=== PATIENT | male | born 1975 ===

== ENCOUNTER 2018-02-12 16:40 | Outpatient (REF) | payer BC, SELFPAY ==
[2018-02-12 22:59] LABS: ALT 45 U/L (12-78); AST 20 U/L (15-37); Albumin 4.2 g/dL (3.4-5.0); Alkaline Phosphatase 76 U/L (46-116); Anion Gap 7.4 mmol/L (3-11); BUN 17 mg/dL (7-18); Bilirubin, Total 0.7 mg/dL (0.2-1.0); CO2 29.6 mmol/L (21.0-32.0); COMMENT (LAB VIEW ONLY) 168.87 mg/dL; CREATININE 1.39 mg/dL (0.70-1.30); Calcium 9.2 mg/dL (8.5-10.1); Chloride 100 mmol/L (98-107); Cholesterol 235 mg/dL (50-200); Estimated GFR 56.04 (mL/min/1.73m2); Glucose 205 mg/dL (70-100); HDL Cholesterol 53 mg/dL (40-60); LDL CHOLESTEROL 156 mg/dL (<100); Microalb ug/mg Crea 4.6 ug/mg Cr; Sodium 137 mmol/L (136-145); Total Protein 7.5 g/dL (6.4-8.2); Triglyceride 210 mg/dL (30-150)
== END 2018-02-12 17:00 ==
LOC: NCHCN 16:40
PROVIDERS: PCP Family Medicine; Visit Provider Family Medicine
DX: E11.9 Type 2 diabetes mellitus without complications (principal); I10 Essential (primary) hypertension; E78.5 Hyperlipidemia, unspecified
CPT/HCPCS: 80053; 80061; 83721; 82043; 82570